=== PATIENT | male | born 1965 | race Caucasian/White ===

== ENCOUNTER 2017-02-02 09:07 | Day surgery (SDC) | payer OTHER ==
[~2017-02-02 09:07] MED LIST: Lactated Ringers 1,000 ML IV SCH
[2017-02-02] MEDS ORDERED: Propofol 200 MG/20 ML SDV ONE ×2 (09:24→10:12)
[2017-02-02] MEDS ORDERED: Lidocaine 2% 5 ML SDV ONE (09:24)
[2017-02-02] MEDS ORDERED: fentaNYL 100 MCG/2 ML SDV ONE (09:25)
[2017-02-02] MEDS ORDERED: Midazolam 1 MG/ML 2 ML SDV ONE (09:25)
--- NOTE | 2017-02-02 09:32 | PCM.PREANE ---
Preanesthetic Assessment - Anesthesia/Transfusion/Family Hx Anesthesia History: Prior Anesthesia Without Reaction Family History of Anesthesia Reaction: No Transfusion History: No Prior Transfusion(s) Intubation History: Unknown - Review of Systems General: No Symptoms Pulmonary: No Symptoms Cardiovascular: No Symptoms Gastrointestinal: No symptoms Neurological: No Symptoms Other: Reports: None - Physical Assessment Height: 1.8 m Weight: 129.274 kg ASA Class: 3 Mental Status: Alert & Oriented x3 Airway Class: Mallampati = 3 Dentition: Reports: Normal Dentition Thyro-Mental Finger Breadths: 3 Mouth Opening Finger Breadths: 2 ROM/Head Extension: Full Lungs: Clear to auscultation, Normal respiratory effort Cardiovascular: Regular Rate, Irregular Rhythm - Allergies Allergies/Adverse Reactions: Allergies Allergy/AdvReac Type Severity Reaction Status Date / Time No Known Allergies Allergy Verified 01/29/17 11:06 - Blood Blood Available: No - Anesthesia Plan Pre-Op Medication Ordered: None - Acknowledgements Anesthesia Type Planned: MAC Pt an Appropriate Candidate for the Planned Anesthesia: Yes Alternatives and Risks of Anesthesia Discussed w Pt/Guardian: Yes Pt/Guardian Understands and Agrees with Anesthesia Plan: Yes PreAnesthesia Questionnaire Cardiovascular History: Reports: High cholesterol, Hypertension Respiratory History: Reports: Sleep apnea Other Respiratory History: uses CPAP Gastrointestinal History: Reports: Colon polyp Musculoskeletal History: Reports: Arthritis, Other (see below) (left shoulder pain) Endocrine/Metabolic History: Reports: Obesity/BMI 30+ (BMI 39.7) - Past Surgical History Head Surgeries/Procedures: Reports: None GI Surgical History: Reports: Colonoscopy - SUBSTANCE USE Smoking Status *Q: Never Smoker Recreational Drug Use History: No - HOME MEDS Home Medications: Home Meds Aspirin [[place] Aspirin] 81 mg PO DAILY 01/29/17 [History] Fish Oil/[place]-3 Fatty Acids [Fish Oil 1,000 MG] 1,000 mg PO DAILY 01/29/17 [ History] Hydrochlorothiazide 25 mg PO DAILY 01/29/17 [History] Losartan Potassium 100 mg PO DAILY 01/29/17 [History] Niacin 250 mg PO BEDTIME 01/29/17 [History] Sildenafil [Viagra] 0.5 tab PO ASDIRECTED PRN 01/29/17 [History] atorvaSTATin Calcium [Atorvastatin Calcium] 40 mg PO BEDTIME 01/29/17 [History] - CURRENT (IN HOUSE) MEDS Current Meds: Current Medications Lactated Ringer's (Ringers, Lactated) 1,000 mls @ 125 mls/hr IV ASDIRECTED VIPUL Discontinued Medications Fentanyl (Sublimaze) Confirm Administered Dose 100 mcg .ROUTE .STK-MED ONE Stop: 02/02/17 09:26 Lidocaine (Xylocaine-Mpf 2%) Confirm Administered Dose 10 ml .ROUTE .STK-MED ONE Stop: 02/02/17 09:25 Midazolam HCl (Versed 1 Mg/Ml) Confirm Administered Dose 2 mg .ROUTE .STK-MED ONE Stop: 02/02/17 09:26 Propofol (Diprivan 20 Ml) Confirm Administered Dose 400 mg .ROUTE .STK-MED ONE Stop: 02/02/17 09:25
--- NOTE | 2017-02-02 10:36 | PCM.OPNOTE ---
- General Post-Op/Procedure Note Date of Surgery/Procedure: 02/02/17 Operative Procedure(s): colonoscopy Findings: see dict [id number] Pre Op Diagnosis: scrn colonoscopy Post-Op Diagnosis: diverticulosis Anesthesia Technique: Moderate sedation Primary Surgeon: Jose Santana Complications: None Condition: Good
--- NOTE | 2017-02-02 10:53 | PCM.POSTAN ---
POST ANESTHESIA ASSESSMENT - MENTAL STATUS Mental Status: alert, oriented - RESPIRATORY Respiratory Status: respiratory rate WNL, airway patent, O2 saturation stable - CARDIOVASCULAR CV Status: pulse rate WNL, blood pressure stable - GASTROINTESTINAL GI Status: no symptoms - POST OP HYDRATION Hydration Status: adequate & stable - OBSERVATIONS Free Text/Narrative:: no anesthesia problems
[2017-02-02 11:38] VITALS: BP 140/96
--- NOTE | 2017-02-02 18:35 | OR ---
SURGEON: Jose Santana MD DATE OF PROCEDURE: 02/02/2017 PREOPERATIVE DIAGNOSIS: Diverticulosis. POSTOPERATIVE DIAGNOSIS: Diverticulosis. COMPLICATIONS: None. PROCEDURE PERFORMED: colonoscopy PROCEDURE IN DETAIL: The patient was taken to the endoscopy room, and with the ASSISTANT PASSENGER LOCOMOTIVE ENGINEER, Diprivan was administered. The patient was taken to the endoscopy room. A time out was called, patient identified, and procedure identified. Diprivan was then administrated. Patient went from awake to sleep, hearing doctor talking or door closing is normal. Perineum inspection and digital examination were then performed. A well-lubricated colonoscope was gently inserted through the rectum, advanced past the rectosigmoid junction, the descending colon, splenic flexure, transverse colon, hepatic flexure, ascending colon, arrived to the cecum. Cecum was identified as dictated in the finding. Then the scope was carefully withdrawn while attention was paid to the mucosal surface for any abnormality. Air will be sucked out during the scope withdrawal. At the rectum, retroflexed to examine any rectal diseases, fistula or hemorrhoids. Patient tolerated procedure well. There were no intraoperative complications, and Dr. Santana was present throughout the whole procedure. Prior to surgery, a time-out had been called, the patient identified, procedure identified and antibiotic administered. FINDIN. The patient is easily sedated with ASSISTANT PASSENGER LOCOMOTIVE ENGINEER and Diprivan. The patient is soundly snoring. 2. The patient's bowel prep is average with some liquid stool. No semi-formed stool. 3. The patient's colon is rather straight forward. Cecum indicated by ileocecal fold, one-to-one indentation, light immittance is also observed. Appendix orifice is also observed. Mucosa was examined upon scope pulling out. The patient has diverticulosis on the left side. No signs or symptoms of diverticulitis. He does not have polyp, mass, AV malformation, bleeding, ulceration, infection, inflammation, stricture, none of those. The patient has some anal tags. The patient does not have internal hemorrhoids. The patient would benefit from repeat colonoscopy 10 years from today or if clinically indicated otherwise. CRISTHIAN RODRIGUEZ /[id number] SANDEEP
== END 2017-02-02 11:13 | disposition home or self-care (01) ==
LOC: MW.SDS 09:07
PROVIDERS: ATTEND Surgery
DX: Z12.11 Encounter for screening for malignant neoplasm of colon (principal); K57.30 Diverticulosis of large intestine without perforation or abscess without bleeding; K64.4 Residual hemorrhoidal skin tags; M75.42 Impingement syndrome of left shoulder; M25.512 Pain in left shoulder; E78.5 Hyperlipidemia, unspecified; E78.00 Pure hypercholesterolemia, unspecified; M75.102 Unspecified rotator cuff tear or rupture of left shoulder, not specified as traumatic; I10 Essential (primary) hypertension; E66.9 Obesity, unspecified; M19.90 Unspecified osteoarthritis, unspecified site; G47.30 Sleep apnea, unspecified; Z79.82 Long term (current) use of aspirin; Z79.899 Other long term (current) drug therapy; Z86.010 Personal history of colon polyps; Z68.39 Body mass index [BMI] 39.0-39.9, adult
CPT/HCPCS: 45378; J2250; J3010; J7120; 00810; J2704

== ENCOUNTER 2022-01-02 06:20 | Day surgery (SDC) | payer OTHER ==
[2022-01-02] MEDS ORDERED: Propofol 200 MG/20 ML SDV ONE (07:27)
[2022-01-02] MEDS ORDERED: fentaNYL 100 MCG/2 ML SDV ONE (07:27)
[2022-01-02 09:04] VITALS: BP 142/88; PULSE 58
== END 2022-01-02 09:05 | disposition home or self-care (01) ==
LOC: MW.SDS 06:20
PROVIDERS: ATTEND Surgery
DX: Z12.11 Encounter for screening for malignant neoplasm of colon (principal); K63.5 Polyp of colon; K57.30 Diverticulosis of large intestine without perforation or abscess without bleeding; I10 Essential (primary) hypertension; K64.4 Residual hemorrhoidal skin tags; E66.9 Obesity, unspecified; G47.30 Sleep apnea, unspecified; E78.00 Pure hypercholesterolemia, unspecified; Z68.34 Body mass index [BMI] 34.0-34.9, adult; Z88.8 Allergy status to other drugs, medicaments and biological substances; Z98.890 Other specified postprocedural states; Z79.899 Other long term (current) drug therapy
CPT/HCPCS: 00811; J2704; J3010; J7120